=== PATIENT | female | born 1985 | race Caucasian/White ===

== ENCOUNTER → 2020-09-10 15:28 | Outpatient (BNVA) | payer SELFPAY | PROVIDERS: PCP Nurse Practitioner | DX: R39.9 Unspecified symptoms and signs involving the genitourinary system (principal); N30.00 Acute cystitis without hematuria | CPT/HCPCS: 81000 ==

== ENCOUNTER 2020-11-26 08:26 | Emergency (ER) | payer SELFPAY ==
[2020-11-26 08:31] VITALS: BP 134/80; PULSE 64; RESP 16; TEMP 36.9; O2SAT 97; BMI 21.7
[2020-11-26 08:34] VITALS: RESP 15
--- NOTE | 2020-11-26 08:41 | W.ED.GENADLT ---
HPI - General Adult General: Chief complaint: General Medical Stated complaint: LEFT RIB PAIN Time Seen by Provider: 11/26/20 08:35 History of Present Illness: HPI narrative: Patient complains about left rib pain from fall that happened 2 weeks ago. She has been taking [id number] medications has been helping some. Patient has had some discomfort while at work and her new job this week is caused more discomfort. Denies any breathing problems or other related problems to the fall. MD complaint: Rib contusion. Onset (ago): week(s) Location: chest Radiation: non-radiation Severity: mild Severity scale (1-10): 1 Quality: aching Pain Consistency: intermittent Relieving factors: immobilization Exacerbating factors: movement Associated symptoms: Reports no associated symptoms; Deny chest pain, dyspnea, headache(s), nausea, rash or vomiting Review of Systems Narrative: Patient complains about left lower rib pain from a fall that happened 2 weeks ago. Work is aggravating since she moved to new job this week. Said she will be able to move to old job next week and she feels she will be able to do that with a discomfort would like a note for work. Const: Denies: fever(s), chills or body aches Eyes: Denies: change in vision or blurry vision ENMT: Denies: throat pain or nasal congestion Card: Denies: chest pain or dyspnea on exertion Resp: Denies: dyspnea, productive cough or non-productive cough GI: Denies: abdominal pain, nausea or vomiting Musc: Denies: extremity pain Skin/Breast: Denies: rash Neuro: Denies: headache(s) Psych: Denies: anxiety or depression Javier/Lymph: Denies: easy bruising PFS ED PFSH: Social History (Updated 11/26/20 @ 08:34 by Xander Blankenship RN) Smoking and tobacco status: former smoker Alcohol intake: never Substance/Drug Use: never Physical Exam Const: COMMON NORMALS: no acute distress Chest: CHEST: Yes localized rib tenderness with anteroposterior compression (Mild) Location: 10th rib, 11th rib and 12th rib Resp: COMMON NORMALS: normal respiratory effort and clear to auscultation bilaterally AUSCULTATION: clear to auscultation bilaterally Skin: NARRATIVE SKIN EXAM: No bruising noted Course Vital Signs: Vital signs: Vital Signs Temperature 98.4 F 11/26/20 08:31 Pulse Rate 64 11/26/20 08:31 Respiratory Rate 16 11/26/20 08:31 Blood Pressure 134/80 11/26/20 08:31 Pulse Oximetry 97 11/26/20 08:31 Discharge Plan Discharge Patient Disposition: Home Clinical Impression: Contusion of rib on left side Qualifiers: Encounter type: initial encounter Qualified Code(s): S20.212A - Contusion of left front wall of thorax, initial encounter Condition: Stable Prescriptions: No Action sulfamethoxazole-trimethoprim [Bactrim DS] 800-160 mg tablet 1 tab PO BID 3 Days Qty: 6 RF: 0 phenazopyridine [Pyridium] 200 mg tablet 200 mg PO Q8H Qty: 6 RF: 0 Discharge Orders: Discharge ED (Routine); Ordered 11/26/20 Ordered By: Manuel Horton Discharge Diet: Usual diet Discharge Activity: Increase activity as tolerated Patient Instructions: Contusion in Adults (ED) Activity Restrictions/Additional Instructions: Apply ice to area as needed. Can take Tylenol or ibuprofen for discomfort. Light duty at work until next Tuesday. No lifting over 10 pounds. Follow-up primary care provider if no significant improvement. 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
[2020-11-26 09:13] VITALS: RESP 15
== END 2020-11-26 09:13 | disposition home or self-care (01) ==
PROVIDERS: Emergency Provider Nurse Practitioner Family
DX: S20.212A Contusion of left front wall of thorax, initial encounter (principal); W19.XXXA Unspecified fall, initial encounter; Z87.891 Personal history of nicotine dependence
CPT/HCPCS: 99281